=== PATIENT | female | born 1990 | race Two or more races ===

== ENCOUNTER 2018-05-27 17:21 | Emergency (ER) | payer SELFPAY ==
[~2018-05-27] VITALS: Ht 154.9 cm; Wt 64.0 kg
[2018-05-27] MEDS ORDERED: LORAZEPAM 0.5MG TABLET PO ONE (20:45)
[2018-05-27] MEDS ORDERED: IBUPROFEN 800MG TABLET PO ONE (20:45)
[2018-05-27] MEDS ORDERED: ONDANSETRON 4MG/5ML UDC PO ONE (20:45)
[2018-05-27 21:13] VITALS: BP 114/48
== END 2018-05-27 21:17 | disposition home or self-care (01) ==
LOC: ER 17:21
DX: F41.9 Anxiety disorder, unspecified (principal)
CPT/HCPCS: 81025; 93005; 99284; Q0162